=== PATIENT | male | born 1950 | race Caucasian/White ===

== ENCOUNTER 2017-04-24 11:16 | Observation (INO) ==
[2017-04-24] MEDS ORDERED: 0.9 % Sodium Chloride 1,000 ML IVC ONE ×2 (11:41→13:01)
[2017-04-24] MEDS ORDERED: Ondansetron 4 MG/2 ML VIAL IVP ONE (11:42)
[2017-04-24] MEDS ORDERED: Pantoprazole 40 MG VIAL IVP ONE (11:43)
[2017-04-24 12:12] LABS: Basophils % 0.3 %; Eosinophils # 0.1 K/mcL (0.0-0.6); Eosinophils % 0.8 %; Hematocrit 43.2 % (37.5-50.1); Hemoglobin 15.8 g/dL (12.9-16.9); Immature Granulocytes % 0.5 % (0-4); Lymphocytes # 1.3 K/mcL (0.6-4.6); Lymphocytes % 16.9 %; Mean Corpuscular HGB Conc 36.6 g/dL (31.6-35.5); Mean Corpuscular Hemoglobin 29.5 pg (28.0-33.3); Mean Corpuscular Volume 80.7 fL (83.0-100.0); Mean Platelet Volume 8.7 fL (9.4-12.4); Monocytes # 0.8 K/mcL (0.0-1.3); Monocytes % 10.9 %; Neutrophils # 5.4 K/mcL (1.6-8.9); Platelet Count 260 K/mcL (140-400); Red Blood Count 5.35 M/mcL (4.19-5.50); Red Cell Distribution Width 12.6 % (11.5-14.5); Segmented Neutrophils % 70.6 %
[2017-04-24 12:29] LABS: Albumin 3.8 g/dL (3.5-5.0); Albumin/Globulin Ratio 1.2 (1.1-2.2); Bilirubin,Total 0.8 mg/dL (0.2-1.2); Calcium 9.5 mg/dL (8.6-10.8); Globulin 3.2 g/dL (2.4-3.5)
--- NOTE | 2017-04-24 13:13 | Emergency Department Note ---
Disposition Clinical Impression: Acute kidney injury Disposition: Admitted As Inpatient Condition: Fair Referrals: Kiera Betts CNP [Primary Care Provider] - Forms: ED Satisfaction Letter, Work/School Release Time of Disposition: 14:00 Abdominal Pain HPI - General Chief Complaint: ED Abdominal Pain Stated Complaint: stomach problem Source: patient Mode of arrival: ambulatory Nursing Notes Reviewed: Yes Vital Signs Reviewed: Yes - History of Present Illness HPI Narrative: Mr. Rodarte reports some upper abdominal pain that is intermittent for the last 24 hours. No vomiting but he has been very nauseated since its onset. He has been somewhat dizzy and lightheaded as well. He is unable to characterize the abdominal pain as dull or sharp. It does not seem to radiate to his back however. No urinary symptoms. He did have a normal bowel movement since the onset of pain which did not seem to affect the pain in any way. He has not had hardly anything to eat since the discomfort came on. He had some difficulty sleeping because of the pain last night. Pt Subjective Complaint: abdominal pain Pain Scale: 4 - Related Data Home Medications Medication Instructions Recorded Confirmed Aspirin [Adult Low Dose Aspirin EC] 81 mg PO DAILY 05/28/15 05/28/15 Carvedilol [Coreg] 25 mg PO BID 05/28/15 05/28/15 Lisinopril-HCTZ 20-12.5 [Prinzide 1 each PO BID 05/28/15 05/28/15 20-12.5] Simvastatin [Zocor] 20 mg PO HS 05/28/15 05/28/15 hydrALAZINE [HydrALAZINE] 25 mg PO Q8HR 05/28/15 05/28/15 Previous Rx's Medication Instructions Recorded Clopidogrel Bisulfate [Plavix] 75 mg PO DAILY #30 tablet 05/28/15 Allergies Allergy/AdvReac Type Severity Reaction Status Date / Time No Known Allergies Allergy Verified 05/28/15 06:41 Constitutional: Denies: fever, chills Eyes: Denies: vision change ENT ED: Denies: dysphagia Cardiovascular: Denies: chest pain, palpitations Respiratory: Denies: cough, dyspnea Gastrointestinal: Reports: abdominal pain, nausea. Denies: vomiting, diarrhea, melena, hematochezia Genitourinary: Denies: urgency, dysuria, frequency, hematuria Musculoskeletal: Denies: myalgia Integumentary: Denies: rash Neurological: Reports: other (Dizziness and lightheadedness as per history of present illness) Endocrine: Reports: fatigue Abdominal Pain PMH - Past Medical History Medical history: Reports: CHF, COPD, coronary artery disease, hyperlipidemia, hypertension Psychiatric history: Reports: no psych history - Social History Smoking status: Current every day smoker Alcohol use: Reports: none Drug use: Reports: none Physical Exam - General Limitations: no limitations General appearance: alert, in no apparent distress, other (Speech is somewhat slurred but according to Mr. Rodarte this is normal for him) - Head Head exam: atraumatic, normocephalic - Eye Eye exam: Present: normal appearance. Absent: scleral icterus - ENT ENT exam: mucous membranes dry - Neck Neck exam: Present: normal inspection. Absent: lymphadenopathy - Chest Chest inspection: Present: normal inspection, symmetric chest wall rise - Respiratory Respiratory exam: Present: normal lung sounds bilaterally. Absent: respiratory distress, wheezes, stridor - Cardiovascular Cardiovascular exam: Present: regular rate, normal rhythm, normal heart sounds. Absent: systolic murmur, diastolic murmur - Abdominal Exam Abdominal exam: Present: soft, tenderness (Mild pain to palpation right upper quadrant. As to the location of the pain that brought him into the emergency department today he directs me to the entire upper abdomen.). Absent: distention, guarding, rebound, rigidity - Extremities Exam Extremities exam: Present: normal inspection. Absent: pedal edema - Neurological Exam Neurological exam: Present: alert - Psychiatric Psychiatric exam: Present: normal affect, normal mood - Skin Skin exam: Present: warm, dry Course Vital Signs Temperature 98.0 F 04/24/17 11:25 Pulse Rate 78 04/24/17 11:25 Respiratory Rate 18 04/24/17 11:25 Blood Pressure 113/65 04/24/17 11:25 O2 Sat by Pulse Oximetry 95 04/24/17 11:25 Temperature 98.0 F 04/24/17 11:25 Pulse Rate 78 04/24/17 11:25 Respiratory Rate 18 04/24/17 11:25 Blood Pressure 113/65 04/24/17 11:25 O2 Sat by Pulse Oximetry 95 04/24/17 11:25 Oxygen Delivery Oxygen Delivery Room Air Abdominal Pain - MDM Narrative Medical decision making narrative: Acute kidney injury. Probably secondary to dehydration. Nausea has kept him from adequate by mouth intake. It would be prudent to admit him for IV fluids. Spoke with the covering hospitalist here at [facility] presented the case. He accepted admission. Orders were written and Mr. Rodarte remains in stable condition as he is awaiting transfer to the floor. Abdominal pain. This is very vague without lab abnormality with a very benign exam. Could be related to hyponatremia which will be corrected with the IV fluids as described above. EKG was done to ensure that there were no peaked T waves with his potassium elevation. There are not but there is some new T-wave changes that could represent ischemia. The only anginal equivalent that he has is nausea. He does have some risk factors however for cardiovascular disease. We will follow troponins during his hospitalization. - Medical Records Medical records reviewed: Yes I reviewed the patient's medical records. - Lab Data Lab results reviewed: Yes I reviewed the patient's lab results. Result diagrams: 04/24/17 12:00 04/24/17 12:00 Lab Results 04/24/17 04/24/17 Range/Units 12:00 12:00 WBC 7.6 (4.3-11.1) K/mcL RBC 5.35 (4.19-5.50) M/mcL Hgb 15.8 (12.9-16.9) g/dL Hct 43.2 (37.5-50.1) % MCV 80.7 L (83.0-100.0) fL MCH 29.5 (28.0-33.3) pg MCHC 36.6 H (31.6-35.5) g/dL RDW 12.6 (11.5-14.5) % Plt Count 260 (140-400) K/mcL MPV 8.7 L (9.4-12.4) fL Immature Gran % 0.5 (0-4) % Seg Neutrophils % 70.6 % Lymphocytes % 16.9 % Monocytes % 10.9 % Eosinophils % 0.8 % Basophils % 0.3 % Neutrophils # 5.4 (1.6-8.9) K/mcL Lymphocytes # 1.3 (0.6-4.6) K/mcL Monocytes # 0.8 (0.0-1.3) K/mcL Eosinophils # 0.1 (0.0-0.6) K/mcL Basophils # 0.0 (0.0-0.2) K/mcL Sodium 124 L (136-145) mEq/L Potassium 5.0 H (3.5-4.5) mEq/L Chloride 90 L (98-109) mEq/L Carbon Dioxide 23 (19-29) mEq/L BUN 50 H (8-26) mg/dL Creatinine 1.75 H (0.72-1.25) mg/dL Est GFR ( Amer) 48 L (> 60) Est GFR (Non-Af Amer) 39 L (> 60) BUN/Creatinine Ratio 29 H (6-26) Glucose 109 H (70-99) mg/dL Calculated Osmolality 272 L (280-300) Calcium 9.5 (8.6-10.8) mg/dL Total Bilirubin 0.8 (0.2-1.2) mg/dL AST 18 (5-34) Units/L ALT 10 (0-55) Units/L Alkaline Phosphatase 82 (38-126) Units/L Serum Total Protein 7.0 (6.0-8.3) g/dL Albumin 3.8 (3.5-5.0) g/dL Globulin 3.2 (2.4-3.5) g/dL Albumin/Globulin Ratio 1.2 (1.1-2.2) Amylase 58 (25-125) Units/L Lipase 54 (8-78) Units/L - EKG Data EKG attestation: Yes I reviewed and interpreted this EKG. EKG results narrative: EKG as interpreted by me normal sinus rhythm 67 bpm. Some asymmetric T-wave inversions V3 V4 V5 V6. Left axis deviation. No ST elevations or depressions. No evidence of hypertrophy. April 2015 study demonstrated upright T waves in V3 V4 V5 and V6.
[2017-04-24 14:40] LABS: Bilirubin,Urine Negative (Negative); Blood,Urine Negative (Negative); Clarity,Urine Clear (Clear); Color,Urine Yellow (Yellow); Glucose,Urine (UA) Normal (Normal); Ketones,Urine Trace mg/dL (Negative); Leukocyte Esterase,Urine Negative (Negative); Nitrite,Urine Negative (Negative); PH,Urine 5.5 pH Units (5.0-8.0); Protein,Urine Negative (Neg-Trace); Specific Gravity,Urine 1.015 (1.010-1.025); Urobilinogen,Urine Normal (Normal)
[2017-04-24] MEDS ORDERED: 0.9 % Sodium Chloride 1,000 ML IVC SCH ×2 (15:00→15:30)
[2017-04-24] MEDS ORDERED: Mag Hydrox/Al Hydrox/Simeth 30 ML UDC PO PRN (15:20)
[2017-04-24] MEDS ORDERED: Acetaminophen 325 MG TABLET PO PRN (15:20)
[2017-04-24] MEDS ORDERED: Ondansetron 4 MG/2 ML VIAL IVP PRN (15:20)
[2017-04-24] MEDS ORDERED: Naloxone 0.4 MG/ML INJ IVP PRN (15:20)
[2017-04-24 15:39] LABS: INR 1.1; Prothrombin Time 12.1 Seconds (9.4-12.1)
[2017-04-24] MEDS: 0.9 % Sodium Chloride 1,000 ML IVC SCH (16:53)
[2017-04-24] MEDS: hydrALAZINE 25 MG TABLET PO SCH (16:54)
--- NOTE | 2017-04-24 17:17 | Electrocardiograph Report ---
[address] [place] [address] Test Date: 2017-04-24 Pat Name: Hector Rodarte Department: 2000 Room: 117 Gender: M Ladle Watcher: : 1950 Requested By: Braulio Pacheoc Order Number: [id number] Reading MD: Paulie Reno DO Measurements Intervals [place] Rate: 67 P: 68 AR: 167 QRS: -18 QRSD: 103 T: 128 QT: 410 QTc: 426 Interpretive Statements SINUS RHYTHM MODERATE T-WAVE ABNORMALITY, CONSIDER ANTEROLATERAL ISCHEMIA Electronically Signed On 04-24-2017 17:15:39 EST by Paulie Reno DO
--- NOTE | 2017-04-24 19:49 | Internal Med History&Physical ---
Date of Encounter: 04/24/17 Time of Encounter: 20:50 Assessment and Plan (1) Hyponatremia Current visit: Yes Status: Acute likely due to dehydration will recieve ivf and repeat in the am. Will check a chest x-ray. (2) PAD (peripheral artery disease) Current visit: No Status: Acute He currently has no symptoms of this we will continue to follow. (3) Acute kidney injury Current visit: Yes Status: Acute likely due to dehydration. ivf will repeat labs in am (4) COPD (chronic obstructive pulmonary disease) Current visit: Yes Status: Acute Qualifiers: COPD type: unspecified COPD Qualified Code(s): J44.9 - Chronic obstructive pulmonary disease, unspecified (5) CAD (coronary artery disease) Current visit: Yes Status: Acute Qualifiers: Coronary Disease-Associated Artery/Lesion type: [place] artery [place] vs. transplanted heart: [place] heart Associated angina: without angina Qualified Code(s): I25.10 - Atherosclerotic heart disease of [place] coronary artery without angina pectoris (6) CHF (congestive heart failure) Current visit: Yes Status: Acute will be careful with the fluids Qualifiers: Congestive heart failure type: systolic Congestive heart failure chronicity : chronic Qualified Code(s): I50.22 - Chronic systolic (congestive) heart failure (7) HTN (hypertension) Current visit: Yes Status: Acute will continue home medication for now and follow Qualifiers: Hypertension type: essential hypertension Qualified Code(s): I10 - Essential (primary) hypertension Internal Medicine - H&P: HPI Chief complaint: stomach pain Admitted From: Home Plans for Post Hospital Care: Home History of present illness: Mr. Rodarte is a 66 year old male Who presents from home after he had 3 days of unable to eat due to epigastric pain and comes and goes does not know what brings it on he does not know what alleviates it. It is hard to give a good history from him. He has not been drinking any water. He has been nauseated he has not had any emesis he says last stool was yesterday. He denies any melena or hematochezia he denies diarrhea. He has been coughing he has the hiccups he has not been wheezing he has not been short of breath. He denies dizziness he denies falls. Past Med Surg Social Fam HX - Past Medical History Medical history: cardiomyopathy, CHF, COPD, coronary artery disease, hyperlipidemia, hypertension, peripheral artery disease, other (mental retardtion, sensorineural hearing loss) Psychiatric history: no psych history - Past Surgical History Surgical History: vascular surgery (left leg), other (left heart cath 05/07/12) - Social History Smoking Status: Current every day smoker Smokeless Tobacco Status: No Alcohol use: none Drug use: none - Family History Mother Living Status: Hx Family Cardiac Disorders: Yes (htn) Hx Family Endocrine Disorder: Yes (dm) Father Living Status: Age at : 78 Internal Medicine - H&P: Meds Aspirin [Adult Low Dose Aspirin EC] 81 mg PO DAILY 05/28/15 [History] Carvedilol [Coreg] 25 mg PO BID 05/28/15 [History] Clopidogrel Bisulfate [Plavix] 75 mg PO DAILY #30 tablet 05/28/15 [Rx] Lisinopril-HCTZ 20-12.5 [Prinzide 20-12.5] 1 each PO BID 05/28/15 [History] Simvastatin [Zocor] 20 mg PO HS 05/28/15 [History] hydrALAZINE [HydrALAZINE] 25 mg PO Q8HR 05/28/15 [History] 3 Allergy/AdvReac Type Severity Reaction Status Date / Time No Known Allergies Allergy Verified 05/28/15 06:41 All Systems PM: A 10-system review of systems was performed and is negative for pertinent findings except as documented above in the HPI. - Constitutional Constitutional: anorexia (no food in 3 days), no chills, no fatigue, no fever(s) , no falls - EENT Eyes: no change in vision - Cardiovascular Cardiovascular ROS IM: no chest pain, no lightheadedness, no palpitations, no syncope - Respiratory Respiratory: cough, no dyspnea, no wheezing - Gastrointestinal Gastrointestinal: abdominal pain, nausea, no constipation (last stool yesterday) , no diarrhea, no hematemesis, no hematochezia, no melena, no vomiting - Genitourinary Genitourinary ROS male: no difficulty urinating, no dysuria - Musculoskeletal Musculoskeletal ROS IM: no muscle weakness, no numbness, no tingling - Integumentary Integumentary IM: no rash, no jaundice - Neurological Neurological ROS: no dizziness, no frequent falls, no numbness, no paresthesias - Constitutional Vitals: Temp Pulse Resp BP Pulse Ox 98.4 F 74 16 169/67 94 04/24/17 19:33 04/24/17 19:33 04/24/17 19:33 04/24/17 19:33 04/24/17 19:33 General appearance: Present: A&O X 3, no acute distress - Head Head exam: Present: atraumatic, normocephalic - Neck Neck exam general surgery: Present: supple, trachea midline. Absent: lymphadenopathy - Respiratory Respiratory exam: Present: CTAB, prolonged expiratory phase - Cardiovascular Cardiovascular exam: Present: RRR, +S1, +S2. Absent: systolic murmur - GI/Abdominal GI/Abdominal exam: Present: normal bowel sounds, tenderness (epigatric tender with guarding). Absent: mass - Extremities Exam Extremities exam: Present: normal capillary refill. Absent: pedal edema - Skin Skin exam: Present: dry, warm. Absent: rash Internal Med - H&P Results - Labs CBC & Chem 7: 04/24/17 12:00 04/24/17 12:00
[2017-04-24] MEDS ORDERED: Ipratropium/Albuterol Neb 3 ML IH PRN (21:00)
[2017-04-25] MEDS: hydrALAZINE 25 MG TABLET PO SCH ×3 (00:31→18:03)
[2017-04-25] MEDS: 0.9 % Sodium Chloride 1,000 ML IVC SCH ×3 (01:03→18:02)
[2017-04-25 04:41] LABS: Basophils % 0.3 %; Eosinophils # 0.1 K/mcL (0.0-0.6); Eosinophils % 1.9 %; Immature Granulocytes % 0.5 % (0-4); Lymphocytes # 1.4 K/mcL (0.6-4.6); Mean Corpuscular HGB Conc 36.8 g/dL (31.6-35.5); Mean Corpuscular Hemoglobin 29.5 pg (28.0-33.3); Mean Corpuscular Volume 80.3 fL (83.0-100.0); Mean Platelet Volume 8.6 fL (9.4-12.4); Monocytes # 0.7 K/mcL (0.0-1.3); Monocytes % 12.1 %; Neutrophils # 3.7 K/mcL (1.6-8.9); Platelet Count 190 K/mcL (140-400); Red Blood Count 4.61 M/mcL (4.19-5.50); Red Cell Distribution Width 12.6 % (11.5-14.5); Segmented Neutrophils % 62.2 %
[2017-04-25 04:42] LABS: Hemoglobin 13.6 g/dL (12.9-16.9)
[2017-04-25 04:51] LABS: BUN/Creatinine Ratio 33 (6-26); Blood Urea Nitrogen 30 mg/dL (8-26); Calcium 8.5 mg/dL (8.6-10.8); Carbon Dioxide 18 mEq/L (19-29); Chloride 101 mEq/L (98-109); Glucose 84 mg/dL (70-99); Osmolality,Calculated 273 (280-300); Phosphorous 2.1 mg/dL (2.3-4.7); Potassium 4.4 mEq/L (3.5-4.5); Sodium 129 mEq/L (136-145); eGFR For African Americans > 60 (> 60); eGFR For Non-African Americans > 60 (> 60)
[2017-04-25] MEDS: *HR* Enoxaparin 40 MG/0.4 ML SYRINGE SQ SCH (05:16)
--- NOTE | 2017-04-25 09:18 | Internal Med Progress Note ---
Date of Encounter: 04/25/17 Time of Encounter: 14:29 - Assessment and plan (1) Hyponatremia Current Visit: Yes Status: Acute Assessment and plan: improved with ivf, due to prerenal dehydration. also holding the hctz (2) PAD (peripheral artery disease) Current Visit: No Status: Acute (3) Acute kidney injury Current Visit: Yes Status: Acute Assessment and plan: improved with the ivf due to prerenal dehydration and not eating or drinking for 3 days prior (4) COPD (chronic obstructive pulmonary disease) Current Visit: Yes Status: Acute Assessment and plan: stable Qualifiers: COPD type: unspecified COPD Qualified Code(s): J44.9 - Chronic obstructive pulmonary disease, unspecified (5) CAD (coronary artery disease) Current Visit: Yes Status: Acute Assessment and plan: stale Qualifiers: Coronary Disease-Associated Artery/Lesion type: [place] artery [place] vs. transplanted heart: [place] heart Associated angina: without angina Qualified Code(s): I25.10 - Atherosclerotic heart disease of [place] coronary artery without angina pectoris (6) CHF (congestive heart failure) Current Visit: Yes Status: Acute Qualifiers: Congestive heart failure type: systolic Congestive heart failure chronicity : chronic Qualified Code(s): I50.22 - Chronic systolic (congestive) heart failure (7) HTN (hypertension) Current Visit: Yes Status: Acute Qualifiers: Hypertension type: essential hypertension Qualified Code(s): I10 - Essential (primary) hypertension (8) Right adrenal mass Current Visit: Yes Status: Acute Assessment and plan: will check dexamethasone supression test, 24 hour metanephrine, catecholamines, plasma renin and aldosterone. - Subjective Interval history: he feels better today, no nausea, still with hiccups. no sob, no cough, no dizzy, drank some sprite, no cp. had ct with adrenal mass. he has htn. no diarrhea, no stool. - Constitutional Vitals: Temp Pulse Resp BP Pulse Ox 97.6 F 69 16 152/71 98 04/25/17 07:14 04/25/17 07:14 04/25/17 07:14 04/25/17 07:14 04/25/17 07:14 General appearance: Present: A&O X 3, no acute distress - Head Head exam: Present: atraumatic, normocephalic - Neck Neck exam general surgery: Present: supple, trachea midline - Respiratory Respiratory exam: Present: CTAB - Cardiovascular Cardiovascular exam: Present: RRR, +S1, +S2. Absent: systolic murmur - GI/Abdominal GI/Abdominal exam: Present: normal bowel sounds, soft, tenderness (mild epigastric) - Extremities Exam Extremities exam: Present: normal capillary refill, warm. Absent: pedal edema - Skin Skin exam: Present: dry, warm. Absent: rash Internal Medicine: Result - Labs CBC & Chem 7: 04/25/17 04:30 04/25/17 04:30 Labs: Short CBC 04/25/17 Range/Units 04:30 WBC 5.9 (4.3-11.1) K/mcL Hgb 13.6 D (12.9-16.9) g/dL Hct 37.0 L (37.5-50.1) % Plt Count 190 (140-400) K/mcL Neutrophils # 3.7 (1.6-8.9) K/mcL BMP 04/25/17 04:30 Sodium 129 L Potassium 4.4 Chloride 101 Carbon Dioxide 18 L BUN 30 H D Creatinine 0.91 Glucose 84 Calcium 8.5 L Cardiac Enzymes 04/24/17 04/25/17 Range/Units 21:45 04:30 Troponin I 0.03 0.03 (0-0.03) ng/mL - ABG Interpretation ABG results: PT/INR, D-dimer PT 12.1 Seconds (9.4-12.1) 04/24/17 15:28 - Impressions Impressions Abdomen/Pelvis CT 04/24/17 20:48 IMPRESSION: Small hiatal hernia. Bilateral inguinal hernias containing bowel without evidence of obstruction or inflammation. 32 mm right adrenal mass. Recommend follow-up in 1 year. RECOMMENDATIONS: Managing Incidental Adrenal Nodule > or equal to 1 cm Benign adrenal nodule - No follow up is required (including myelolipomas, adenomas, or nodules stable for > or equal to 1 year) Indeterminate adrenal nodule 1-4 cm: Benign imaging features (homogeneous, low density, smooth margin) - if no priors exams available, follow up adrenal protocol CT or MR recommended in 12 months Suspicious imaging features (heterogenous, necrosis, irregular margins) - Nonemergent outpatient follow up adrenal protocol CT or MRI recommended. Indeterminate adrenal nodule >4 cm: Surgical and/or oncology (if patient has other cancer history) consultation recommended. Reference: [facility] et al. Managing Incidental Findings on Abdominal CT: White Paper of the ACR Incidental Findings Committee. J Am Dheeraj Radiol 2010;7:754-773 D/ / Abbe Duarte MD / Abbe Duarte MD Interpreting Provider: Abbe Duarte MD Chest X-Ray 04/24/17 20:48 IMPRESSION: COPD and granulomatous change with no acute finding in the chest. D/ / Chau Diaz MD / Chau Diaz MD Interpreting Provider: Chau Diaz MD Consult Discharge Plan - Plan Referrals: Kiera Betts CARDIAC/VASCULAR SONOGRAPHER [Primary Care Provider] -
[2017-04-25] MEDS: Aspirin Enteric Coated 81 MG Tablet PO SCH (09:36)
[2017-04-25] MEDS: Lisinopril 20 MG TABLET PO SCH (09:36)
[2017-04-26] MEDS: hydrALAZINE 25 MG TABLET PO SCH ×4 (00:58→23:51)
[2017-04-26] MEDS: 0.9 % Sodium Chloride 1,000 ML IVC SCH ×4 (02:19→20:31)
[2017-04-26] MEDS: *HR* Enoxaparin 40 MG/0.4 ML SYRINGE SQ SCH (05:13)
--- NOTE | 2017-04-26 08:26 | Internal Med Progress Note ---
Date of Encounter: 04/26/17 Time of Encounter: 08:26 - Assessment and plan (1) Hyponatremia Current Visit: Yes Status: Acute Assessment and plan: improved with ivf, due to prerenal dehydration. also holding the hctz (2) PAD (peripheral artery disease) Current Visit: No Status: Acute (3) Acute kidney injury Current Visit: Yes Status: Acute Assessment and plan: improved with the ivf due to prerenal dehydration and not eating or drinking for 3 days prior, also holding the hctz (4) COPD (chronic obstructive pulmonary disease) Current Visit: Yes Status: Acute Assessment and plan: stable Qualifiers: COPD type: unspecified COPD Qualified Code(s): J44.9 - Chronic obstructive pulmonary disease, unspecified (5) CAD (coronary artery disease) Current Visit: Yes Status: Acute Assessment and plan: stale Qualifiers: Coronary Disease-Associated Artery/Lesion type: [place] artery [place] vs. transplanted heart: [place] heart Associated angina: without angina Qualified Code(s): I25.10 - Atherosclerotic heart disease of [place] coronary artery without angina pectoris (6) CHF (congestive heart failure) Current Visit: Yes Status: Acute Qualifiers: Congestive heart failure type: systolic Congestive heart failure chronicity : chronic Qualified Code(s): I50.22 - Chronic systolic (congestive) heart failure (7) HTN (hypertension) Current Visit: Yes Status: Acute Assessment and plan: holding the hctz may need to adjust medication if not staying in range Qualifiers: Hypertension type: essential hypertension Qualified Code(s): I10 - Essential (primary) hypertension (8) Right adrenal mass Current Visit: Yes Status: Acute Assessment and plan: will check dexamethasone supression test, 24 hour metanephrine, catecholamines, plasma renin and aldosterone. discussed with step jose olivo that he will need another ct in 12 months - Subjective Interval history: he feels better today, no nausea, still with hiccups. no sob, no cough, no dizzy, eating the clear liquid breakfast. he would like to try some eggs and toast. e, no cp. had ct with adrenal mass. he has htn. no diarrhea, norm stool. discussed the adrenal mass and work up and need for another ct in 1 year with trav olivo. - Constitutional Vitals: Temp Pulse Resp BP Pulse Ox 97.8 F 70 15 153/85 97 04/26/17 04:00 04/26/17 04:00 04/26/17 04:00 04/26/17 04:00 04/26/17 04:00 General appearance: Present: A&O X 3, no acute distress - Head Head exam: Present: atraumatic, normocephalic - Neck Neck exam general surgery: Present: supple, trachea midline - Respiratory Respiratory exam: Present: CTAB - Cardiovascular Cardiovascular exam: Present: RRR, +S1, +S2. Absent: systolic murmur - GI/Abdominal GI/Abdominal exam: Present: normal bowel sounds, soft, no peritoneal signs. Absent: guarding, mass, tenderness - Extremities Exam Extremities exam: Present: normal capillary refill, warm. Absent: pedal edema - Skin Skin exam: Present: dry, warm. Absent: rash Internal Medicine: Result - Labs CBC & Chem 7: 04/26/17 08:03 04/26/17 08:03 - ABG Interpretation ABG results: PT/INR, D-dimer PT 12.1 Seconds (9.4-12.1) 04/24/17 15:28 Consult Discharge Plan - Plan Referrals: Kiera Betts, CERTIFIED HEARING INSTRUMENT DISPENSER [Primary Care Provider] -
[2017-04-26 08:32] LABS: Basophils % 0.4 %; Eosinophils % 0.2 %; Hematocrit 36.4 % (37.5-50.1); Hemoglobin 13.2 g/dL (12.9-16.9); Immature Granulocytes % 0.7 % (0-4); Lymphocytes # 0.9 K/mcL (0.6-4.6); Mean Corpuscular HGB Conc 36.3 g/dL (31.6-35.5); Mean Corpuscular Hemoglobin 29.5 pg (28.0-33.3); Mean Corpuscular Volume 81.3 fL (83.0-100.0); Mean Platelet Volume 8.8 fL (9.4-12.4); Monocytes # 0.3 K/mcL (0.0-1.3); Monocytes % 5.8 %; Neutrophils # 4.4 K/mcL (1.6-8.9); Platelet Count 220 K/mcL (140-400); Red Blood Count 4.48 M/mcL (4.19-5.50); Red Cell Distribution Width 12.6 % (11.5-14.5); Segmented Neutrophils % 77.9 %
[2017-04-26 08:41] LABS: BUN/Creatinine Ratio 17 (6-26); Blood Urea Nitrogen 12 mg/dL (8-26); Calcium 8.7 mg/dL (8.6-10.8); Carbon Dioxide 21 mEq/L (19-29); Chloride 100 mEq/L (98-109); Glucose 96 mg/dL (70-99); Osmolality,Calculated 270 (280-300); Potassium 5.1 mEq/L (3.5-4.5); Sodium 130 mEq/L (136-145); eGFR For African Americans > 60 (> 60); eGFR For Non-African Americans > 60 (> 60)
[2017-04-26] MEDS: Aspirin Enteric Coated 81 MG Tablet PO SCH (09:14)
[2017-04-26] MEDS: Lisinopril 20 MG TABLET PO SCH (09:14)
[2017-04-27] MEDS: *HR* Enoxaparin 40 MG/0.4 ML SYRINGE SQ SCH (05:28)
[2017-04-27] MEDS: 0.9 % Sodium Chloride 1,000 ML IVC SCH (05:37)
[2017-04-27 05:40] LABS: Basophils % 0.4 %; Eosinophils # 0.2 K/mcL (0.0-0.6); Eosinophils % 2.9 %; Hematocrit 38.1 % (37.5-50.1); Hemoglobin 13.9 g/dL (12.9-16.9); Immature Granulocytes % 0.4 % (0-4); Lymphocytes # 1.7 K/mcL (0.6-4.6); Lymphocytes % 23.4 %; Mean Corpuscular HGB Conc 36.5 g/dL (31.6-35.5); Mean Corpuscular Hemoglobin 29.4 pg (28.0-33.3); Mean Corpuscular Volume 80.7 fL (83.0-100.0); Mean Platelet Volume 8.7 fL (9.4-12.4); Monocytes # 0.7 K/mcL (0.0-1.3); Monocytes % 10.2 %; Neutrophils # 4.5 K/mcL (1.6-8.9); Platelet Count 241 K/mcL (140-400); Red Blood Count 4.72 M/mcL (4.19-5.50); Red Cell Distribution Width 12.4 % (11.5-14.5); Segmented Neutrophils % 62.7 %
[2017-04-27 05:56] LABS: BUN/Creatinine Ratio 13 (6-26); Blood Urea Nitrogen 9 mg/dL (8-26); Calcium 8.5 mg/dL (8.6-10.8); Carbon Dioxide 22 mEq/L (19-29); Chloride 102 mEq/L (98-109); Glucose 99 mg/dL (70-99); Osmolality,Calculated 273 (280-300); Potassium 4.3 mEq/L (3.5-4.5); Sodium 132 mEq/L (136-145); eGFR For African Americans > 60 (> 60); eGFR For Non-African Americans > 60 (> 60)
[2017-04-27 07:32] VITALS: BP 148/78
--- NOTE | 2017-04-27 08:37 | Discharge Summary ---
Date of Encounter: 04/27/17 Time of Encounter: 08:35 - Discharge Diagnosis (1) Hyponatremia Priority: Primary Status: Acute Comments: He presented to the emergency room after he had been ill and not eating for the past 2 days prior to admission. He had some epigastric pain some nausea he had vomiting several days before admission. He was kept nothing by mouth CT scan of the abdomen was obtained that showed an adrenal mass. No other acute abnormality. He had a chest x-ray that showed evidence of histoplasmosis. His hyponatremia was likely due to prerenal dehydration he responded well to IV fluids he had normal saline and his sodium to come back up to 132 on the day of discharge. He was tolerating oral food and liquids well. He denied any nausea or stomach pain. He was sent home in a stable condition to follow-up in the office with his primary care provider Janet Betts. (2) PAD (peripheral artery disease) Priority: Secondary Status: Acute Comments: Was not an active problems admission there was some questionable whether he took Plavix I spoke with his stepdaughter Shelia she says he has not had plavix a long time since he had not had it we did not continue it as an outpatient. He denies any claudication or leg pain. (3) Acute kidney injury Priority: Secondary Status: Acute Comments: Is due to prerenal dehydration due to the fact that he had not had anything to eat or drink for the past 3 days prior to admission he did respond IV fluids his creatinine went normal BUS was normal on the day of discharge. (4) COPD (chronic obstructive pulmonary disease) Priority: Secondary Status: Acute Comments: Stable and not an issue this admission duo nebs were ordered but he did not need them. Qualifiers: COPD type: unspecified COPD Qualified Code(s): J44.9 - Chronic obstructive pulmonary disease, unspecified (5) CAD (coronary artery disease) Priority: Secondary Status: Acute Comments: Any chest pain this admission but he did receive 3 serial troponins from the ER and they were negative. Qualifiers: Coronary Disease-Associated Artery/Lesion type: [place] artery [place] vs. transplanted heart: [place] heart Associated angina: without angina Qualified Code(s): I25.10 - Atherosclerotic heart disease of [place] coronary artery without angina pectoris (6) CHF (congestive heart failure) Priority: Secondary Status: Acute Comments: he did Not have any symptoms of heart failure. Not have any shortness of breath he did not have any orthopnea he did not have any edema. Qualifiers: Congestive heart failure type: systolic Congestive heart failure chronicity : chronic Qualified Code(s): I50.22 - Chronic systolic (congestive) heart failure (7) HTN (hypertension) Priority: Secondary Status: Acute Comments: I did stop his hydrochlorothiazide to the hyponatremia his blood pressure did go up he had not been taking the hydralazine we restarted that. Qualifiers: Hypertension type: essential hypertension Qualified Code(s): I10 - Essential (primary) hypertension (8) Right adrenal mass Priority: Secondary Status: Acute Comments: He had a dexamethasone suppression test that was negative all of his other blood work and 24-hour urine from catecholamines and metanephrines are pending at this time. I discussed with Janet Betts his primary care provider that he will need follow-up on this she knows he needs to follow up For this at his next follow-up visit. - Discharge Medications Prescriptions: Lisinopril [Zestril] 20 mg PO DAILY #30 tablet Omeprazole [PriLOSEC] 20 mg PO BIDAC #60 capsule.dr Perdomo Medications: Aspirin [Adult Low Dose Aspirin EC] 81 mg PO DAILY 05/28/15 [History] Carvedilol [Coreg] 25 mg PO BID 05/28/15 [History] Simvastatin [Zocor] 20 mg PO HS 05/28/15 [History] hydrALAZINE [HydrALAZINE] 25 mg PO Q8HR 05/28/15 [History] Lisinopril [Zestril] 20 mg PO DAILY #30 tablet 04/27/17 [Rx] Omeprazole [PriLOSEC] 20 mg PO BIDAC #60 capsule. 04/27/17 [Rx] Allergies/Adverse Reactions: 3 Allergy/AdvReac Type Severity Reaction Status Date / Time No Known Allergies Allergy Verified 05/28/15 06:41 Procedures/tests Complete & Pending: Procedures Performed prior 72 hours Category Date Time Status CT abd pelvis wo iv oral only [CT] Stat Cat Scan 04/24/17 20:48 Completed Date of admission: 04/24/17 15:39 Primary care physician: Kiera Betts CNP - Patient Status Disposition: Home, Self-Care Condition: Good Functional capacity at discharge: independent ambulation Overall status at discharge: patient is progressing back to baseline - Discharge Instructions Instructions: Peripheral Vascular Disorders (DC), Chronic Hypertension (DC), Chronic Obstructive Pulmonary Disease (DC), Heart Failure (DC) Follow Up With: Kiera Betts CNP [Primary Care Provider] - 05/08/17 1:40 pm - Diet and Activity Activity: resume usual activities as tolerated Diet: low fat, low cholesterol, low salt diet Interval History: He presented to the ER with nausea epigastric pain no by mouth intake for the past 3 days hyponatremia and acute renal injury. He received IV fluids. And that did not respond well to treatment. He also had a CT scan presented epigastric pain that did not show any acute abdominal disease but did have an adrenal mass that is being worked up his 24-hour urine is still pending and his other blood work is still pending for that he will have to follow up as an outpatient for that. I did discuss with his stepdaughter Shelia at that that will have to be followed up at it may not be back for a week or 2 and I also discussed with his primary care provider Janet that that needed to be followed up too. Blood pressure was up and down he did have his hydrochlorothiazide held due to the hyponatremia restarted his hydralazine. Follow-up in the office and see what it is next week. Hospital course: Mr. Rodarte is a 66 year old male - Time Spent with Patient Total time spent providing and/or coordinating discharge services: - Constitutional Vitals: Temp Pulse Resp BP Pulse Ox 98.0 F 62 16 148/78 98 04/27/17 07:31 04/27/17 07:31 04/27/17 07:31 04/27/17 07:31 04/27/17 07:31 General appearance: Present: A&O X 3, no acute distress - Head Head exam: Present: atraumatic, normocephalic - Neck Neck exam general surgery: Present: supple, trachea midline - Respiratory Respiratory exam: Present: CTAB - Cardiovascular Cardiovascular exam: Present: RRR, +S1, +S2. Absent: systolic murmur - GI/Abdominal GI/Abdominal exam: Present: normal bowel sounds, soft, no peritoneal signs. Absent: distended, guarding, mass, rebound, tenderness - Extremities Exam Extremities exam: Present: normal capillary refill, warm. Absent: cyanotic, pedal edema - Skin Skin exam: Present: dry, warm. Absent: rash
[2017-04-27] MEDS: Lisinopril 20 MG TABLET PO SCH (08:55)
[2017-04-27] MEDS: Aspirin Enteric Coated 81 MG Tablet PO SCH (08:56)
[2017-04-27] MEDS: hydrALAZINE 25 MG TABLET PO SCH (08:56)
[2017-04-27] MEDS ORDERED: FLUARIX QUAD 2017-18 36MOS UP/PF 0.5 ML SYRINGE IM ONE (10:40)
[2017-04-28 10:23] LABS: Aldolase, Serum 3.3 U/L (1.5-8.1)
[2017-04-30 13:35] LABS: Urine Collection Duration NOT PROVIDED hr; Urine Collection Volume NOT PROVIDED mL
== END 2017-04-27 11:15 | disposition home or self-care (01) ==
LOC: EMEROOGRE 11:16 → INPGRE 11:16
PROVIDERS: ADMIT Family Medicine; ATTEND Family Medicine